=== PATIENT | female | born 1935 | race Caucasian/White ===

== ENCOUNTER → 2016-04-26 | Outpatient (CLI) | payer MEDICARE, MEDICAID | END | disposition home or self-care (01) | LOC: HKI 09:14 | PROVIDERS: ATTEND Orthopaedic Surgery | DX: Z01.818 Encounter for other preprocedural examination (principal); M16.0 Bilateral primary osteoarthritis of hip; M25.551 Pain in right hip; M25.552 Pain in left hip | CPT/HCPCS: G0463 ==

== ENCOUNTER 2016-05-09 05:17 | Inpatient (IN) | payer MEDICARE, OTHER ==
[2016-04-26 11:53] VITALS: Ht 160 cm; Wt 78.5 kg
--- NOTE | 2016-05-05 17:40 | PREOPHP ---
DATE OF ADMISSION: 05/09/2016 ASH Alarcon dictating for Diogo Park MD. CHIEF COMPLAINT: Left hip pain due to severe arthritis. HISTORY OF THE PRESENT ILLNESS: This is a 80-year-old woman evaluated from 04/26/2016 for left hip replacement surgery. PAST MEDICAL HISTORY: Diabetes, hypothyroidism, hypertension, hyperlipidemia, depression, history o f UTI. PAST SURGICAL HISTORY: Cholecystectomy, appendectomy, ____ removal for varicose veins. MEDICATIONS: 1. Metformin 500 mg b.i.d. 2. Levothyroxine 75 mcg. 3. Atorvastatin 40 mg daily. 4. Lisinopril/HCTZ 20/12.5 mg daily. 5. Vitamin D 2000 units. 6. Citalopram 20 mg. 7. Voltaren gel 1% p.r.n. b.i.d. 8. Acetaminophen 500 mg t.i.d. ALLERGIES: IODINE CAUSED HIVES. CIPROFLOXACIN CAUSED VOMITING. SOCIAL HISTORY: She is a . She lives alone and never smoked. She does not drink alcohol. FAMILY HISTORY: Diabetes, hypertension and breast cancer. REVIEW OF SYSTEMS: GENERAL/CONSTITUTIONAL: Negative. CARDIOVASCULAR: Negative for chest pain, palpitations and shortness of breath, syncope. RESPIRATORY: Negative for asthma, shortness of breath. GASTROINTESTINAL: Negative for gastritis, abdominal pain or gastrointestinal bleeding. GENITOURINARY: Negative for nephrolithiasis. Positive for history of UTI. NEUROLOGICAL/PSYCHIATRIC: Negative for stroke and neuropathy. Positive for depression controlled b y citalopram. HEMATOLOGIC: Negative. ENDOCRINOLOGY: Positive for diabetes and hypothyroidism. SKIN: Negative. PHYSICAL EXAMINATION: VITAL SIGNS: Height 5 feet 3 inches, weight 179.0 pounds. Temperature 98.1, blood pressure 172/88, heart rate 81 beats per minute regular. Respiratory rate 20. GENERAL APPEARANCE: Well developed and in no acute distress. Oriented x3. HEENT: Normocephalic and atraumatic. Anicteric sclerae. Narrow canals present. Oropharynx clear . Dentures. SKIN: No lesions. Normal turgor and texture. NECK: Symmetrical, supple, no masses. Trachea is midline. CARDIAC: Regular rhythm. No murmurs. LUNGS: Clear to auscultation bilaterally. Normal chest expansion. ABDOMEN: Soft and nontender, no organomegaly. Peristalsis present. MUSCULOSKELETAL: Spine nontender, no scoliosis. Good range of motion. EXTREMITIES: Pedal pulses present, no edema. NEUROLOGICAL: Cranial nerves grossly intact, nonfocal. No hilar rigidity. No sensory deficits. ADDITIONAL TESTS: Chest x-ray with marked cardiopulmonary disease. EKG normal sinus rhythm with si nus arrhythmia at 70 beats per minute, . LABORATORY DATA: Hemoglobin 12.3, hematocrit 37.7, leukocytes 6.4, platelets 181. BMP and PT and P TT within normal limits. UA: Specific gravity 0.007, negative for glucose, protein and ketones and blood leukocytes. Positive for leukocyte esterase. ASSESSMENT AND PLAN: A 80-year-old woman diabetic with multiple comorbidities with severe osteoarth ritis of the left hip. She is cleared for total left hip replacement surgery. Cardiology clearance attached. Dictated By: GENERIC AUTHOR for DIOGO MCGARRY/KATLIN Conf#: [id number] DID#: [id number]
[2016-05-09] VITALS (26 sets, daily range): BP systolic 101–138; BP diastolic 49–65; PULSE 68–80; RESP 10–20
[~2016-05-09] VITALS: Ht 160 cm; Wt 78.5 kg
[2016-05-09] MEDS: PAIN COCKTAIL-CEFUROXIME IRR SCH ×14 (05:00→08:18)
[~2016-05-09 05:17] MED LIST: BUPIVACAINE LIPOSOME/PF 266 MG/20 ML VIAL INFIL SCH; CEFAZOLIN 2GM/50 ML (PMX) 50 ML X1 BEFORE INCISION IVPB ONE; CELECOXIB 400 MG PO X1 DOSE PO ONE; EXPAREL NOTE (BUPIVICAINE LIPOSOMAL) XX SCH; LACTATED RINGER'S 1,000 ML IV ONE; PREGABALIN 300 MG PO X1 PO ONE; SOD CHLORIDE 0.9% IV ONE; TRANEXAMIC ACID 790 MG in SOD CHLORIDE 0.9% 100 ML IVPB SCH; TRANEXAMIC ACID IV ONE; oxyCODONE (CR) 10 MG TAB [oxyCONTIN] X1 DOSE PO ONE; traMADOL 50 MG TAB X 1 DOSE PO ONE
[2016-05-09] MEDS ORDERED: CEFAZOLIN 2GM/50 ML (PMX) 50 ML X1 BEFORE INCISION IVPB ONE (06:00)
[2016-05-09] MEDS ORDERED: CELECOXIB 400 MG PO X1 DOSE PO ONE (06:00)
[2016-05-09] MEDS ORDERED: TRANEXAMIC ACID IV ONE (06:00)
[2016-05-09] MEDS ORDERED: TRANEXAMIC ACID 790 MG in SOD CHLORIDE 0.9% 100 ML IVPB SCH (06:00)
[2016-05-09] MEDS ORDERED: SOD CHLORIDE 0.9% IV ONE (06:00)
[2016-05-09] MEDS ORDERED: traMADOL 50 MG TAB X 1 DOSE PO ONE (06:30)
[2016-05-09] MEDS ORDERED: BUPIVACAINE LIPOSOME/PF 266 MG/20 ML VIAL INFIL SCH (06:30)
[2016-05-09] MEDS ORDERED: PREGABALIN 300 MG PO X1 PO ONE (06:30)
[2016-05-09] MEDS ORDERED: oxyCODONE (CR) 10 MG TAB [oxyCONTIN] X1 DOSE PO ONE (06:30)
[2016-05-09] MEDS ORDERED: ROCURONIUM 50 MG INJ ONE (06:56)
[2016-05-09] MEDS ORDERED: ETOMIDATE 20 MG INJ ONE (06:56)
[2016-05-09] MEDS ORDERED: LIDOCAINE 100 MG SYRINGE ONE (06:56)
[2016-05-09] MEDS ORDERED: PROPOFOL 100 ML ONE (06:56)
[2016-05-09] MEDS ORDERED: NEOSTIGMINE 3 MG/3 ML SYRINGE ONE (06:56)
[2016-05-09] MEDS ORDERED: GLYCOPYRROLATE 1 MG INJ ONE (06:56)
[2016-05-09] MEDS ORDERED: MIDAZOLAM 1 MG/ML 2 ML INJ ONE (06:58)
[2016-05-09] MEDS ORDERED: FENTAnyl 50 MCG/ML VIAL ONE (06:58)
[2016-05-09] MEDS ORDERED: ONDANSETRON 4 MG INJ ONE (06:59)
[2016-05-09] MEDS ORDERED: DEXAMETHASONE 4 MG/ML 1 ML INJ ONE (07:02)
[2016-05-09] MEDS ORDERED: BACITRACIN 50000 UNITS INJ ONE (07:06)
[2016-05-09] MEDS ORDERED: SODIUM CL BACTERIOSTATIC 30 ML INJ ONE (07:08)
[2016-05-09] MEDS ORDERED: VANCOMYCIN 1 GM INJ ONE (07:09)
[2016-05-09] MEDS ORDERED: POLYMYXIN B 500000 UNIT INJ ONE (07:09)
--- NOTE | 2016-05-09 07:15 | HPN ---
Date/Time of Note Date/Time of Note DATE: 05/09/16 TIME: 07:15 Interval H&P Admission Note Pt. seen H&P reviewed: No system changes No changes from H&P Dictated by ASH Alarcon on 05/05/16 HEIKE HOLMAN MD May 09, 2016 07:15
[2016-05-09] MEDS ORDERED: LEVO75TA5 PO (07:39)
[2016-05-09] MEDS ORDERED: METF500T PO (07:39)
[2016-05-09] MEDS ORDERED: ATOR40TA68 PO (07:39)
[2016-05-09] MEDS ORDERED: LISI1TAB6 PO (07:41)
[2016-05-09] MEDS ORDERED: VIT D (07:41)
[2016-05-09] MEDS ORDERED: ACET-141 PO (07:42)
[2016-05-09] MEDS ORDERED: CITA20TA6 PO (07:42)
[2016-05-09] MEDS ORDERED: MEPERIDINE 25 MG INJ IV PRN (08:30)
[2016-05-09] MEDS ORDERED: TRIMETHOBENZAMIDE 100 MG/ML VIAL IM PRN (08:30)
[2016-05-09] MEDS ORDERED: ONDANSETRON 4 MG INJ IV PRN ×2 (08:30→15:00)
[2016-05-09] MEDS ORDERED: MIDAZOLAM 1 MG/ML 2 ML INJ IV PRN (08:30)
[2016-05-09] MEDS ORDERED: hydrALAzine 20 MG INJ IV PRN (08:30)
[2016-05-09] MEDS ORDERED: DIPHENHYDRAMINE 50 MG INJ IV PRN (08:30)
[2016-05-09] MEDS ORDERED: LABETALOL HCL 20MG INJ IV PRN (08:30)
[2016-05-09] MEDS ORDERED: EPHEDrine SULFATE 50 MG/5 ML SYG IV PRN (08:30)
[2016-05-09] MEDS ORDERED: HYDROmorphONE (0.2 MG/ML) 10ML SYG IV PRN ×3 (08:30)
[2016-05-09] MEDS ORDERED: FENTAnyl 50 MCG/ML VIAL IV PRN ×3 (08:30)
--- NOTE | 2016-05-09 09:18 | RADRPT ---
PROCEDURE: Intraoperative imaging of the left hip with fluoroscopy. CLINICAL INDICATION: Left hip pain. Intraoperative. TECHNIQUE: 16 images of the left hip were obtained in the operating room with an image intensifier . No radiologist was in attendance. 0.6 minutes of fluoroscopy time was used. COMPARISON: No prior study is available for comparison. FINDINGS: Images demonstrate placement of a total left hip arthroplasty. IMPRESSION: 1. Satisfactory intraoperative imaging of the left hip. RPTAT: QQ .Ferdinand Alcaraz MD, MD Date Time Electronically viewed and signed by .Ferdinand Alcaraz MD, MD on 05/09/2016 09:18 .R/
[2016-05-09] MEDS ORDERED: NACL 0.9% 3 ML SYG IV SCH (10:00)
[2016-05-09] MEDS ORDERED: NA PHOSPHATE/BIPHOS 133 ML ENEMA PR PRN (10:00)
[2016-05-09] MEDS ORDERED: ASPIRIN (EC) 325 MG TAB PO ONE (10:00)
--- NOTE | 2016-05-09 10:00 | PN ---
Date/Time of Note Date/Time of Note DATE: 05/09/16 TIME: 09:59 Assessment/Plan Lines/Catheters IV Catheter Type (from Nrsg): Peripheral IV Assessment/Plan Assessment/Plan Stable in PACU, s/p left anterior ROMÁN -cont abx -pain meds ASA/SCDs for DVT prophylaxis -OOB with PT -monitor drain -check AM labs -d/c ybarra in AM XR of the left hip is still pending at this time Subjective 24 Hr Interval Summary Stable in PACU. Moving all extremities. Denies any pain. Exam/Review of Systems Vital Signs Vitals Vital Signs Date Time Temp Pulse Resp B/P Pulse Ox O2 Delivery O2 Flow Rate FiO2 05/09/16 09:55 98.0 05/09/16 07:25 75 18 138/65 98 Intake and Output 05/08/16 05/08/16 05/09/16 15:00 23:00 07:00 Intake Total 0 ml Balance 0 ml Exam Free Text/Dictation Dressing dry Incision clean, dry, and intact without redness or drainage 5/5 Quadriceps, Tibialis Anterior, EHL, Gastroc, Soleus, Peroneals Normal sensation Palpable DT/PT, CR <2 sec No distal edema NENA MEDRANO PA-C May 09, 2016 10:00
--- NOTE | 2016-05-09 10:02 | OPPN ---
Date/Time of Note Date/Time of Note DATE: 05/09/16 TIME: 10:01 Operative/Procedure Note Dictation # [id number] Pre-Operative Diagnosis Left Hip OA Post-Operative Diagnosis Same Procedure Left Anterior ROMÁN Surgeon: HEIKE HOLMAN MD Books Salesperson: NENA MEDRANO PA-C Anesthesiologist: Deejay Uriarte M.D. Findings Severe OA Blood Usage/Administration None Implants/Grafts Depuy ROMÁN Estimated blood loss: 250 - 300 ml's Drains Hemovac x 1 Specimens Femoral Head Complications: None Anesthesia type: spinal HEIKE HOLMAN MD May 09, 2016 10:02
--- NOTE | 2016-05-09 10:31 | RADRPT ---
PROCEDURE: XR Pelvis. CLINICAL INDICATION: Hip pain TECHNIQUE: Single AP view performed. COMPARISON: 01/10/2016 FINDINGS: There is a left total hip replacement. There is no evidence of loosening of the prosthesis. There is moderate right hip osteoarthrosis. This is associated with joint space narrowing, subchondr al sclerosis and osteophytosis. There is diffuse osteopenia. No fractures or osseous lesions are i dentified. There are postoperative soft tissue changes on the left. A drain is in place. IMPRESSION: Postoperative left total hip replacement Postoperative soft tissue changes with a drain in place Moderate right hip osteoarthrosis. RPTAT: HGDB .Nilesh Dominguez MD, MD Date Time Electronically viewed and signed by .Nilesh Dominguez MD, on 05/09/2016 10:31 .B/
--- NOTE | 2016-05-09 10:33 | RADRPT ---
PROCEDURE: XR left hip. CLINICAL INDICATION: Hip pain TECHNIQUE: AP view available for review. COMPARISON: 01/10/2016 FINDINGS: There is a postoperative left total hip replacement. There is no evidence of loosening of the prosth esis. There is normal mineralization, architecture and alignment. No fractures are identified. No osseous lesions are present. There are postoperative soft tissue changes. The drain is in place. IMPRESSION: Postoperative left total hip replacement Postoperative soft tissue changes RPTAT: HGDB .Nilesh Dominguez MD, Date Time Electronically viewed and signed by .Nilesh Dominguez MD, on 05/09/2016 10:32 .B/
[2016-05-09] MEDS ORDERED: CEFAZOLIN 1 GM/50 ML (PMX) 50 ML IVPB ONE (10:46)
[2016-05-09 10:47] LABS: HEMATOCRIT 32.9 % (37.0-47.0)
[2016-05-09] MEDS: CEFAZOLIN 2 GM/50 ML (PMX) 50 ML IVPB SCH ×2 (10:57→18:00)
--- NOTE | 2016-05-09 11:41 | OPR ---
DATE OF OPERATION: 05/09/2016 DATE: 05/09/2016 PREOPERATIVE DIAGNOSIS: Left hip osteoarthritis. POSTOPERATIVE DIAGNOSIS: Left hip osteoarthritis. OPERATION PERFORMED: Left anterior total hip arthroplasty. SURGEON: Heike Park MD BUSH HOG OPERATOR: ASH Sanders COMPONENTS USED: De Puy 50 mm Gription [place] cup, 50/32 neutral Ultrex polyethylene linear, size 3 standard Actis stem, 32 + 5 ceramic head. ANESTHESIA: Spinal plus general endotracheal intubation, plus periarticular injection. ANESTHESIOLOGIST: Dr. Tom ESTIMATED BLOOD LOSS: 300 cc INTRAVENOUS FLUIDS: Crystalloid 2 L. SPECIMENS: Femoral head. DRAINS: HemoVac x 1. COMPLICATIONS: None. DISPOSITION: The patient tolerated the procedure well and was taken to the recovery room in stable condition. INDICATIONS: The patient is a 80-year-old woman who has had progressive worsening pain in the right hip with radiographic evidence of severe osteoarthritis. She has failed nonsurgical means of treatment to control her pain, including activity modifications, pain medications and ambulatory assist devices. Despite these measures, she has had worsening pain and I felt she would benefit from a total hip arthroplasty and anterior approach. I felt the patient would benefit from a total hip arthroplasty through an anterior approach. The risks, benefits, and alternatives of the procedure were explained in detail to the patient. I explained the risks of the surgery to include, but not be limited to: bleeding and possible need for blood transfusion; infection; pain; stiffness; neurovascular injury with possible numbness, weakness, and/or paralysis anywhere from the hip down to the toes; fracture; instability; dislocation; leg length inequality; wear and/or loosening of the prosthesis and possible need for future revision; blood clots; pulmonary embolism; and anesthetic complications such as heart attack, stroke, GI bleed, pneumonia, and/ or . Ample time was allowed for the patient to ask questions, all of which were addressed and answered. The patient understood the risks involved and wished to proceed. Informed consent was signed prior to the procedure. PROCEDURE: The patient's left hip was initialed with a marking pen in the preoperative area to identify the correct operative site. The patient was brought to the operating room and [facility] where a spinal anesthetic was administered. The patient was then anesthetized and intubated. A Herr catheter was placed. Both feet were placed into well-padded boots which were then placed into the leg holders of the traction booms. A timeout was performed to confirm that the ;eft side was the correct operative site. The patient was given 2 g of intravenous Ancef within one hour prior to the procedure. The operative hip was prepped and draped in the usual sterile fashion. A 10 cm oblique incision was made over the anterior aspect of the hip and carried down through subcutaneous tissue and fat with sharp dissection. The tensor fascia jose was incised along the length of the wound. The tensor fascia muscle was retracted laterally and the sartorius medially. The anterior circumflex vessels were identified and tied off with 2-0 silk suture and coagulated with the [employer] physician relations representative. The rectus femoris was elevated off the anterior capsule and an anterior capsulectomy performed. A femoral neck osteotomy was made and the head removed from the acetabulum. The acetabulum was denuded of cartilage circumferentially, as was the femoral head. Retractors were placed around the acetabulum. The remnants of the labrum and ligamentum teres were excised. I reamed the acetabulum to the medial wall and then went into an anatomic position and increased the reamer size in 2 mm increments until I got a good bite and was down to bleeding subchondral bone. The Decatur cup was opened and impacted into the acetabulum and sat flush circumferentially, getting a good bite. C-arm imaging showed it had about 40 to 45 degrees of abduction and 20 degrees of anteversion. The real liner was opened and impacted into the acetabulum and sat flush circumferentially. Attention was turned towards the femur. The operative leg was carefully lowered to the floor with the leg adducted. The foot was then externally rotated to approximately 110 degrees. A posteromedial release was performed to optimize exposure. The femoral hook was placed underneath the proximal femur and the hydraulic lift was then used to elevate the femur up out of the wound. The sebastian cutter osteotome was used to remove the remaining overhanging greater trochanter. The femur was then broached, going up in one size increments until it sat flush with the neck cut and a stable fit was achieved. The trial neck and head were assembled and reduced into the acetabulum. Fluoroscopic imaging showed the components to be in good position and the leg lengths and offsets to be equal. At this point, the trial was dislocated and the trial broach removed. The canal was irrigated and dried. The real stem was opened and impacted into the femur. The trunnion was irrigated and dried, and the real femoral head was impacted onto the trunnion, and reduced into the acetabulum. The soft tissues were infiltrated with a mixture of 150 mg of 0.5% Bupivacaine, 8 mg of Duramorph, 300 mcg of epinephrine, 30 mg of Toradol, 100 mcg of clonidine, 750 mg of cefuroxime and 86 mL of normal saline, followed by an injection of 266 mg of liposomal Bupivacaine. At this point the hip was irrigated with a mixture of betadine/saline and then antibiotic saline with pulsatile lavage. A Hemovac drain was placed in the deep portion of the wound and brought out the anterolateral thigh. There was good hemostasis. The tensor fascia jose was repaired with a running #1 Vicryl. The deep fat layer was irrigated and closed with 2-0 Stratafix and the subcutaneous layer closed with 3 -0 Stratafix and the skin was sealed with Prineo Dermabond. The drain was secured with 3-0 nylon. Dictated By: HEIKE SORIA/KATLIN Conf#: [id number] DID#: [id number] MTDYas
[2016-05-09 12:37] LABS: POTASSIUM 4.5 mmol/L (3.5-5.1)
[2016-05-09 12:39] LABS: CREATININE 0.56 mg/dl (0.44-1.00)
[2016-05-09] MEDS: traMADol 50 MG TAB PO SCH ×2 (12:46→18:00)
[2016-05-09] MEDS: ACETAMINOPHEN 1000MG/100ML IV 100 ML IVPB SCH ×2 (12:46→17:55)
[2016-05-09] MEDS: LISINOPRIL 20 MG TAB PO SCH (14:00)
[2016-05-09] MEDS ORDERED: CEFAZOLIN 2 GM/50 ML (PMX) 50 ML IVPB SCH (14:00)
[2016-05-09] MEDS ORDERED: GLUCOSE GEL 15 GRAM TUBE BUCCAL PRN (14:30)
[2016-05-09] MEDS ORDERED: GLUCAGON 1 MG INJ IM PRN (14:30)
[2016-05-09] MEDS ORDERED: GLUCOSE GEL 15 GRAM TUBE PO PRN ×2 (14:30)
[2016-05-09] MEDS ORDERED: DEXTROSE 50% 50 ML SYRINGE IV PRN ×2 (14:30)
--- NOTE | 2016-05-09 14:41 | CONS ---
DATE OF ADMISSION: 05/09/2016 DATE OF CONSULTATION: 05/09/2016 TYPE OF CONSULTATION: Nephrology. Dear Dr. Hawkins: Thank you very much for allowing me to evaluate this 80-year-old female who just un derwent left hip replacement. HISTORICAL EVENTS: As you well know, this patient has had progressive disabling pain involving her left hip, and elected to proceed with surgery. Postoperatively, on the orthopedic floor, she is com fortable without cough, wheezing, shortness of breath, nausea, vomiting, abdominal or chest pain and has just minimal left hip discomfort. PAST MEDICAL HISTORY: 1. Includes: Adult onset diabetes. 2. Hypothyroidism. 3. Hypertension. 4. Hyperlipidemia. 5. Depression. 6. History of urinary tract infection. 7. Cholecystectomy. 8. Appendectomy. 9. Surgery for varicose veins. MEDICATIONS 1. Metformin 500 b.i.d. 2. Levothyroxine 75 mcg per day. 3. Atorvastatin 40 mg per day. 4. Lisinopril/hydrochlorothiazide 20/12.5 per day. 5. Vitamin D 2000 per day. 6. Citalopram 20 mg per day. 7. Voltaren gel p.r.n. 8. Acetaminophen 500 t.i.d. ALLERGIES INCLUDE: 1. CIPRO. 2. IODINE. SOCIAL HISTORY: She is a , does not smoke, does not drink. FAMILY HISTORY: Positive for breast cancer, hypertension and diabetes. PHYSICAL EXAMINATION: GENERAL: Overweight female in no acute distress. VITAL SIGNS: BP 123/78, respirations were 18. She was afebrile. EYES: Extraocular muscles were full. NOSE, MOUTH, AND THROAT: Normal. NECK: Supple. There was no jugular venous distention, thyroid enlargement or adenopathy. LUNGS: Clear. HEART: Rhythm was regular, no murmur. No third or fourth sound. ABDOMEN: Nontender. Liver and spleen were not palpable. No masses or tenderness were noted. EXTREMITIES: No edema. IMPRESSION: 1. Stable postop left hip replacement. 2. History of diabetes. We will continue metformin and treat with short-acting insulin a.c. t.i.d . 3. Hyperlipidemia with a history of coronary artery disease. Will continue atorvastatin. 4. Hypertension. We will continue RAY inhibitor without hydrochlorothiazide. 5. We will evaluate her daily with you for signs and symptoms of thromboembolic disease despite scotty ropriate DVT prophylaxis. Dictated By: VIRY VALVERDE/KATLIN Conf#: [id number] DID#: [id number]
[2016-05-09] MEDS ORDERED: oxyCODONE 5 MG TAB PO PRN (15:00)
[2016-05-09] MEDS ORDERED: HYDROmorphONE 1 MG/ML SYG IV PRN (15:00)
[2016-05-09] MEDS ORDERED: BISACODYL 10 MG SUPP PR PRN (15:00)
[2016-05-09] MEDS: KETOROLAC 15 MG INJ IV SCH ×2 (15:00→22:53)
[2016-05-09] MEDS ORDERED: DIPHENHYDRAMINE 25 MG CAP PO PRN (15:00)
[2016-05-09] MEDS ORDERED: MAGNESIUM HYDROXIDE 30ML CUP PO PRN (15:00)
[2016-05-09] MEDS: LACTATED RINGER'S 1,000 ML IV SCH (17:55)
[2016-05-09] MEDS: PANTOPRAZOLE (EC) 40 MG TAB PO SCH (17:59)
[2016-05-09] MEDS: INSULIN ASPART [NOVOLOG] 3 ML PEN SC SCH (18:34)
[2016-05-09] MEDS: ATORVASTATIN 40 MG TAB PO SCH (20:45)
[2016-05-09] MEDS: PREGABALIN 25 MG CAP PO SCH (20:45)
[2016-05-09] MEDS: DOCUSATE SODIUM 100 MG CAP PO SCH (20:45)
[2016-05-10] MEDS: ACETAMINOPHEN 1000MG/100ML IV 100 ML IVPB SCH ×2 (00:01→05:44)
[2016-05-10 00:08] VITALS: BP 96/51; RESP 20
[2016-05-10] MEDS: CEFAZOLIN 2 GM/50 ML (PMX) 50 ML IVPB SCH (02:48)
[2016-05-10 05:40] LABS: HEMATOCRIT 26.5 % (37.0-47.0); HEMOGLOBIN 8.9 g/dl (12.0-16.0)
[2016-05-10] MEDS: LACTATED RINGER'S 1,000 ML IV SCH ×4 (05:44→23:00)
[2016-05-10] MEDS: PANTOPRAZOLE (EC) 40 MG TAB PO SCH ×2 (05:44→18:28)
[2016-05-10] MEDS: traMADol 50 MG TAB PO SCH ×5 (05:45→23:57)
[2016-05-10 05:47] LABS: POTASSIUM 4.6 mmol/L (3.5-5.1)
[2016-05-10 05:50] LABS: CALCIUM 8.7 mg/dl (8.4-10.2); CREATININE 0.65 mg/dl (0.44-1.00)
[2016-05-10 06:09] VITALS: BP 96/55; PULSE 71; RESP 18
[2016-05-10 06:17] LABS: ADD UMIC NO; URINE BILIRUBIN (Dip) NEGATIVE (NEGATIVE); URINE BLOOD (Dip) NEGATIVE (NEGATIVE); URINE COLOR LT. YELLOW (YELLOW); URINE GLUCOSE (Dip) NEGATIVE (NEGATIVE); URINE KETONES (Dip) NEGATIVE (NEGATIVE); URINE LEUKOCYTE ESTERASE (Dip) NEGATIVE (NEGATIVE); URINE NITRITE (Dip) NEGATIVE (NEGATIVE); URINE TOTAL PROTEIN (Dip) NEGATIVE (NEGATIVE); URINE UROBILINOGEN (Dip) 0.2 E.U./dL (0.1-1.0)
[2016-05-10] MEDS: LEVOTHYROXINE 75 MCG TAB PO SCH (06:24)
[2016-05-10] MEDS: KETOROLAC 15 MG INJ IV SCH ×2 (06:34→16:04)
--- NOTE | 2016-05-10 08:48 | CONS ---
Date/Time of Note Date/Time of Note DATE: 05/10/16 TIME: 08:47 Assessment/Plan Assessment/Plan Additional Assessment/Plan 1. Doing well post op left hip replacement. 2. Hx elev BP, now controlled 3. Anemia, rev with ortho, may need transfusion Consultation Date/Type/Reason Admit Date/Time May 09, 2016 at 05:17 Initial Consult Date Detailed Summary Respiratory: No cough, No shortness of breath Cardiovascular: No chest pain Gastrointestinal: no complaints Genitourinary: no complaints Musculoskeletal: bone/joint pain (mild left hip pain) Exam/Review of Systems Vital Signs Vitals Vital Signs Date Time Temp Pulse Resp B/P Pulse Ox O2 Delivery O2 Flow Rate FiO2 05/10/16 06:09 98.3 71 18 96/55 94 Room Air 05/09/16 20:00 2.0 Intake and Output 05/09/16 05/09/16 05/10/16 15:00 23:00 07:00 Intake Total 2000 ml 1450 ml 1250 ml Output Total 1200 ml 740 ml Balance 2000 ml 250 ml 510 ml Exam Neck: No jvd Respiratory: clear to auscultation Cardiovascular: regular rate and rhythm Gastrointestinal: soft Extremities: No edema (and no calf tend) Results Result Diagram: 05/10/16 0428 05/10/16 0420 Results 24 hrs Laboratory Tests Test 05/09/16 10:09 05/09/16 10:33 05/09/16 17:45 05/10/16 04:20 Bedside Glucose 178 216 Anion Gap 17 H 13 Blood Urea Nitrogen 16 19 Calcium Level 9.0 8.7 Carbon Dioxide Level 23 27 Chloride Level 108 102 Creatinine 0.56 0.65 Glucose Level 201 139 # Hematocrit 32.9 L Hemoglobin 11.0 L Potassium Level 4.5 4.6 Sodium Level 143 137 Test 05/10/16 04:28 05/10/16 04:30 05/10/16 07:36 Hematocrit 26.5 L Hemoglobin 8.9 L Urine Bilirubin NEGATIVE Urine Clarity CLEAR Urine Color LT. YELLOW Urine Glucose NEGATIVE Urine Hemoglobin NEGATIVE Urine Ketones NEGATIVE Urine Leukocyte Esterase NEGATIVE Urine Nitrite NEGATIVE Urine Specific [place] 1.010 Urine Total Protein NEGATIVE Urine Urobilinogen 0.2 E.U./dL Urine pH 6.0 Bedside Glucose 143 Medications Medications Current Medications Miscellaneous Information 1 ea NOTE XX ; Start 05/09/16 at 05:00; Stop 05/13/16 at 04:59 Atorvastatin Calcium (Lipitor) 40 mg QHS PO Last administered on 05/09/16 20: 45; Admin Dose 40 MG; Start 05/09/16 at 21:00 Citalopram Hydrobromide 20 mg 20 mg DAILY PO ; Start 05/10/16 at 09:00 Lactated Ringer's (Lr) 1,000 ml @ 125 mls/hr Q8H IV Last administered on 05:44; Admin Dose 125 MLS/HR; Start 05/09/16 at 15:00 Ketorolac Tromethamine (Toradol) 15 mg Q8H IV Last administered on 05/10/16 06 :34; Admin Dose 15 MG; Start 05/09/16 at 15:00; Stop 05/10/16 at 16:00 Celecoxib 200 mg 200 mg DAILY PO ; Start 05/10/16 at 09:00 Acetaminophen (Ofirmev 1000mg/ 100ml Iv) 100 ml @ 400 mls/hr Q6 IVPB Last administered on 05/10/16 05:44; Admin Dose 400 MLS/HR; Start 05/09/16 at 12:00 ; Stop 05/10/16 at 11:59 Tramadol HCl (Ultram) 50 mg Q6 PO Last administered on 05/10/16 05:45; Admin Dose 50 MG; Start 05/09/16 at 12:00; Stop 05/12/16 at 11:59 Oxycodone HCl (Roxicodone) 5 mg Q4H PRN PO PAIN LEVEL 1-3; Start 05/09/16 at 15 :00 Oxycodone HCl (Roxicodone) 10 mg Q4H PRN PO PAIN LEVEL 4-7; Start 05/09/16 at 15:00 Hydromorphone HCl (Dilaudid) 1 mg Q3H PRN IV PAIN LEVEL 8-10; Start 05/09/16 at 15:00 Ondansetron HCl (Zofran Inj) 4 mg Q6H PRN IV NAUSEA AND/OR VOMITING; Start at 15:00 Bisacodyl (Dulcolax Supp) 10 mg Q12H PRN NV CONSTIPATION; Start 05/09/16 at 15: 00 Magnesium Hydroxide (Milk Of Mag) 30 ml BID PRN PO CONSTIPATION; Start at 15:00 Sodium Biphosphate/ Sodium Phosphate (Fleet Enema) 133 ml DAILY PRN NV CONSTIPATION; Start 05/09/16 at 10:00 Docusate Sodium (Colace) 100 mg BID PO Last administered on 05/09/16 20:45; Admin Dose 100 MG; Start 05/09/16 at 21:00 Diphenhydramine HCl (Benadryl) 25 mg Q6H PRN PO PRURITUS; Start 05/09/16 at 15: 00 Aspirin (Ecotrin) 325 mg BID PO ; Start 05/10/16 at 09:00 Pregabalin (Lyrica) 50 mg BID PO Last administered on 05/09/16 20:45; Admin Dose 50 MG; Start 05/09/16 at 21:00 Pantoprazole (Protonix Tab) 40 mg BID@06,18 PO Last administered on 05/10/16 05:44; Admin Dose 40 MG; Start 05/09/16 at 18:00 Lisinopril (Zestril) 20 mg DAILY PO ; Start 05/09/16 at 14:00 Levothyroxine Sodium (Synthroid) 75 mcg DAILY@06 PO Last administered on 06:24; Admin Dose 75 MCG; Start 05/10/16 at 06:00 Miscellaneous Information 1 ea NOTE XX ; Start 05/09/16 at 14:30 Glucose (Glutose) 15 gm Q15M PRN PO DECREASED GLUCOSE; Start 05/09/16 at 14:30 Glucose (Glutose) 22.5 gm Q15M PRN PO DECREASED GLUCOSE; Start 05/09/16 at 14: 30 Dextrose (D50w Syringe) 25 ml Q15M PRN IV DECREASED GLUCOSE; Start 05/09/16 at 14:30 Dextrose (D50w Syringe) 50 ml Q15M PRN IV DECREASED GLUCOSE; Start 05/09/16 at 14:30 Glucagon (Glucagen) 1 mg Q15M PRN IM DECREASED GLUCOSE; Start 05/09/16 at 14:30 Glucose (Glutose) 15 gm Q15M PRN BUCCAL DECREASED GLUCOSE; Start 05/09/16 at 14 :30 Influenza Virus Vaccine (Fluzone) 0.5 ml ONCE ONCE IM* ; Start 05/11/16 at 09:00 ; Stop 05/11/16 at 09:01 VIRY CASTANEDA MD May 10, 2016 08:48
[2016-05-10] MEDS: INSULIN ASPART [NOVOLOG] 3 ML PEN SC SCH ×3 (08:53→18:30)
--- NOTE | 2016-05-10 08:53 | PN ---
Date/Time of Note Date/Time of Note DATE: 05/10/16 TIME: 08:51 Assessment/Plan Lines/Catheters IV Catheter Type (from Nrsg): Peripheral IV Herr in Place (from Nrsg): Yes Assessment/Plan Assessment/Plan Stable POD #1 s/p left anterior ROMÁN -d/c abx -pain meds -ASA/SCDs -monitor H&H for now, check AM labs -OOB with PT -encourage incentive spirometry -drain removed today, dressing changed -d/c planning. Would like to go to [facility] ([facility]) Subjective 24 Hr Interval Summary Doing well. No acute overnight events. H&H dropped mildly. Will monitor for now. Denies pain. VSS, afebrile Exam/Review of Systems Vital Signs Vitals Vital Signs Date Time Temp Pulse Resp B/P Pulse Ox O2 Delivery O2 Flow Rate FiO2 05/10/16 06:09 98.3 71 18 96/55 94 Room Air 05/09/16 20:00 2.0 Intake and Output 05/09/16 05/09/16 05/10/16 15:00 23:00 07:00 Intake Total 2000 ml 1450 ml 1250 ml Output Total 1200 ml 740 ml Balance 2000 ml 250 ml 510 ml Exam Free Text/Dictation Hemovac: 140cc Dressing dry Incision clean, dry, and intact without redness or drainage 5/5 Quadriceps, Tibialis Anterior, EHL, Gastroc, Soleus, Peroneals Normal sensation Palpable DT/PT, CR <2 sec No distal edema Results Result Diagram: 05/10/16 0428 05/10/16 0420 NENA MEDRANO PA-C May 10, 2016 08:53
[2016-05-10] MEDS: metFORMIN 500 MG TAB PO SCH (08:54)
[2016-05-10] MEDS: CELECOXIB 200 MG CAP PO SCH (08:54)
[2016-05-10] MEDS: DOCUSATE SODIUM 100 MG CAP PO SCH ×2 (08:54→20:30)
[2016-05-10] MEDS: ASPIRIN (EC) 325 MG TAB PO SCH ×2 (08:54→20:30)
[2016-05-10] MEDS: CITALOPRAM 20 MG TAB PO SCH (08:55)
[2016-05-10] MEDS: LISINOPRIL 20 MG TAB PO SCH (08:55)
[2016-05-10] MEDS: PREGABALIN 25 MG CAP PO SCH ×2 (08:57→20:30)
[2016-05-10 09:04] VITALS: BP 119/56; RESP 18
[2016-05-10] MEDS: oxyCODONE 5 MG TAB PO PRN (16:05)
[2016-05-10] MEDS: ATORVASTATIN 40 MG TAB PO SCH (20:30)
[2016-05-11] MEDS: oxyCODONE 5 MG TAB PO PRN (02:02)
[2016-05-11] MEDS: PANTOPRAZOLE (EC) 40 MG TAB PO SCH ×2 (05:25→17:22)
[2016-05-11] MEDS: LEVOTHYROXINE 75 MCG TAB PO SCH (05:25)
[2016-05-11 05:26] LABS: HEMATOCRIT 25.6 % (37.0-47.0); HEMOGLOBIN 8.7 g/dl (12.0-16.0)
[2016-05-11 05:34] LABS: POTASSIUM 3.9 mmol/L (3.5-5.1)
[2016-05-11 05:36] LABS: CREATININE 0.53 mg/dl (0.44-1.00)
[2016-05-11 05:37] LABS: CALCIUM 8.3 mg/dl (8.4-10.2)
[2016-05-11] MEDS: traMADol 50 MG TAB PO SCH ×3 (05:47→17:22)
[2016-05-11] MEDS: LACTATED RINGER'S 1,000 ML IV SCH ×3 (07:00→22:56)
[2016-05-11] MEDS ORDERED: INFLUENZA VIRUS VACCINE 0.5 ML (DISPENSING) IM* ONE (09:00)
[2016-05-11] MEDS: LISINOPRIL 20 MG TAB PO SCH (09:00)
[2016-05-11] MEDS: DOCUSATE SODIUM 100 MG CAP PO SCH ×2 (09:02→21:37)
[2016-05-11] MEDS: metFORMIN 500 MG TAB PO SCH (09:02)
[2016-05-11] MEDS: ASPIRIN (EC) 325 MG TAB PO SCH ×2 (09:02→21:37)
[2016-05-11] MEDS: PREGABALIN 25 MG CAP PO SCH ×2 (09:03→21:37)
[2016-05-11] MEDS: CELECOXIB 200 MG CAP PO SCH (09:03)
[2016-05-11] MEDS: CITALOPRAM 20 MG TAB PO SCH (09:03)
[2016-05-11 09:04] VITALS: BP 118/62; RESP 20
[2016-05-11] MEDS: INSULIN ASPART [NOVOLOG] 3 ML PEN SC SCH ×3 (09:05→17:22)
--- NOTE | 2016-05-11 11:11 | PN ---
Date/Time of Note Date/Time of Note DATE: 05/11/16 TIME: 11:09 Assessment/Plan Lines/Catheters IV Catheter Type (from Nrsg): Saline Lock Herr in Place (from Nrsg): No Assessment/Plan Assessment/Plan Stable POD #2 s/p left anterior ROMÁN -pain meds -ASA/SCDs -OOB with PT -dressing changed -H&H low but will monitor for now -encourage incentive spirometry -d/c planning. Will likely go to [facility] tomorrow Subjective 24 Hr Interval Summary Doing well. No acute overnight events. H&H low, but will monitor for now. VSS, afebrile. Will plan to transfer to [facility] tomorrow. Exam/Review of Systems Vital Signs Vitals Vital Signs Date Time Temp Pulse Resp B/P Pulse Ox O2 Delivery O2 Flow Rate FiO2 05/11/16 09:04 99.4 86 20 118/62 95 05/10/16 07:30 Nasal Cannula 2.0 Intake and Output 05/10/16 05/10/16 05/11/16 15:00 23:00 07:00 Intake Total 1100 ml 800 ml Balance 1100 ml 800 ml Exam Free Text/Dictation Dressing dry Incision clean, dry, and intact without redness or drainage 5/5 Quadriceps, Tibialis Anterior, EHL, Gastroc, Soleus, Peroneals Normal sensation Palpable DT/PT, CR <2 sec No distal edema Results Result Diagram: 05/11/16 0423 05/11/16 0423 NENA MEDRANO PA-C May 11, 2016 11:11
--- NOTE | 2016-05-11 12:28 | CONS ---
Date/Time of Note Date/Time of Note DATE: 05/11/16 TIME: 12:26 Assessment/Plan Assessment/Plan Additional Assessment/Plan 1. Stable post op left hip 2. BP well controlled 3. Anemia, asx, no need for transfusion, will monitor Consultation Date/Type/Reason Admit Date/Time May 09, 2016 at 05:17 Detailed Summary Cardiovascular: No chest pain, No lightheadedness Gastrointestinal: no complaints Genitourinary: no complaints Musculoskeletal: bone/joint pain (mild left hip pain) Exam/Review of Systems Vital Signs Vitals Vital Signs Date Time Temp Pulse Resp B/P Pulse Ox O2 Delivery O2 Flow Rate FiO2 05/11/16 09:04 99.4 86 20 118/62 95 05/10/16 07:30 Nasal Cannula 2.0 Intake and Output 05/10/16 05/10/16 05/11/16 15:00 23:00 07:00 Intake Total 1100 ml 800 ml Balance 1100 ml 800 ml Exam Neck: No jvd Respiratory: clear to auscultation Cardiovascular: regular rate and rhythm Gastrointestinal: No tender Extremities: No edema (and no calf tend) Results Result Diagram: 05/11/16 0423 05/11/16 0423 Results 24 hrs Laboratory Tests Test 05/10/16 17:10 05/11/16 04:23 05/11/16 08:08 05/11/16 11:26 Bedside Glucose 142 153 182 Anion Gap 12 Blood Urea Nitrogen 17 Calcium Level 8.3 L Carbon Dioxide Level 28 Chloride Level 102 Creatinine 0.53 Glucose Level 135 Hematocrit 25.6 L Hemoglobin 8.7 L Potassium Level 3.9 Sodium Level 138 Medications Medications Current Medications Miscellaneous Information 1 ea NOTE XX ; Start 05/09/16 at 05:00; Stop 05/13/16 at 04:59 Atorvastatin Calcium (Lipitor) 40 mg QHS PO Last administered on 05/10/16 20: 30; Admin Dose 40 MG; Start 05/09/16 at 21:00 Citalopram Hydrobromide 20 mg 20 mg DAILY PO Last administered on 05/11/16 09: 03; Admin Dose 20 MG; Start 05/10/16 at 09:00 Lactated Ringer's (Lr) 1,000 ml @ 125 mls/hr Q8H IV Last administered on 05:44; Admin Dose 125 MLS/HR; Start 05/09/16 at 15:00 Celecoxib (Celebrex) 200 mg DAILY PO Last administered on 05/11/16 09:03; Admin Dose 200 MG; Start 05/10/16 at 09:00 Tramadol HCl (Ultram) 50 mg Q6 PO Last administered on 05/10/16 18:28; Admin Dose 50 MG; Start 05/09/16 at 12:00; Stop 05/12/16 at 11:59 Oxycodone HCl (Roxicodone) 5 mg Q4H PRN PO PAIN LEVEL 1-3 Last administered on 05/11/16 02:02; Admin Dose 5 MG; Start 05/09/16 at 15:00 Oxycodone HCl (Roxicodone) 10 mg Q4H PRN PO PAIN LEVEL 4-7; Start 05/09/16 at 15:00 Hydromorphone HCl (Dilaudid) 1 mg Q3H PRN IV PAIN LEVEL 8-10; Start 05/09/16 at 15:00 Ondansetron HCl (Zofran Inj) 4 mg Q6H PRN IV NAUSEA AND/OR VOMITING; Start at 15:00 Bisacodyl (Dulcolax Supp) 10 mg Q12H PRN [place] CONSTIPATION; Start 05/09/16 at 15: 00 Magnesium Hydroxide (Milk Of Mag) 30 ml BID PRN PO CONSTIPATION; Start at 15:00 Sodium Biphosphate/ Sodium Phosphate (Fleet Enema) 133 ml DAILY PRN CO CONSTIPATION; Start 05/09/16 at 10:00 Docusate Sodium (Colace) 100 mg BID PO Last administered on 05/11/16 09:02; Admin Dose 100 MG; Start 05/09/16 at 21:00 Diphenhydramine HCl (Benadryl) 25 mg Q6H PRN PO PRURITUS; Start 05/09/16 at 15: 00 Aspirin (Ecotrin) 325 mg BID PO Last administered on 05/11/16 09:02; Admin Dose 325 MG; Start 05/10/16 at 09:00 Pregabalin (Lyrica) 50 mg BID PO Last administered on 05/11/16 09:03; Admin Dose 50 MG; Start 05/09/16 at 21:00 Pantoprazole (Protonix Tab) 40 mg BID@06,18 PO Last administered on 05/11/16 05:25; Admin Dose 40 MG; Start 05/09/16 at 18:00 Lisinopril (Zestril) 20 mg DAILY PO ; Start 05/09/16 at 14:00 Levothyroxine Sodium (Synthroid) 75 mcg DAILY@06 PO Last administered on 05:25; Admin Dose 75 MCG; Start 05/10/16 at 06:00 Miscellaneous Information 1 ea NOTE XX ; Start 05/09/16 at 14:30 Glucose (Glutose) 15 gm Q15M PRN PO DECREASED GLUCOSE; Start 05/09/16 at 14:30 Glucose (Glutose) 22.5 gm Q15M PRN PO DECREASED GLUCOSE; Start 05/09/16 at 14: 30 Dextrose (D50w Syringe) 25 ml Q15M PRN IV DECREASED GLUCOSE; Start 05/09/16 at 14:30 Dextrose (D50w Syringe) 50 ml Q15M PRN IV DECREASED GLUCOSE; Start 05/09/16 at 14:30 Glucagon (Glucagen) 1 mg Q15M PRN IM DECREASED GLUCOSE; Start 05/09/16 at 14:30 Glucose (Glutose) 15 gm Q15M PRN BUCCAL DECREASED GLUCOSE; Start 05/09/16 at 14 :30 VIRY CASTANEDA MD May 11, 2016 12:28
[2016-05-11 19:00] VITALS: BP_SYST 121; BP_SYST 124; BP_DIAS 64; BP_DIAS 73; RESP 18
[2016-05-11] MEDS: ATORVASTATIN 40 MG TAB PO SCH (21:37)
[2016-05-12] MEDS: traMADol 50 MG TAB PO SCH ×2 (00:15→05:31)
[2016-05-12] MEDS: PANTOPRAZOLE (EC) 40 MG TAB PO SCH (05:31)
[2016-05-12] MEDS: LEVOTHYROXINE 75 MCG TAB PO SCH (05:31)
[2016-05-12 06:33] LABS: IRON 12 ug/dl (35-150)
[2016-05-12 06:40] LABS: HEMATOCRIT 27.2 % (37.0-47.0); HEMOGLOBIN 9.2 g/dl (12.0-16.0)
[2016-05-12 06:42] LABS: TOTAL IRON BINDING CAPACITY 295 ug/dl (241-421)
[2016-05-12 06:57] LABS: POTASSIUM 4.3 mmol/L (3.5-5.1)
[2016-05-12] MEDS: LACTATED RINGER'S 1,000 ML IV SCH ×2 (06:58→15:00)
[2016-05-12 07:00] LABS: CREATININE 0.53 mg/dl (0.44-1.00)
[2016-05-12 07:01] LABS: CALCIUM 8.6 mg/dl (8.4-10.2)
[2016-05-12] MEDS: INSULIN ASPART [NOVOLOG] 3 ML PEN SC SCH ×2 (07:20→12:52)
--- NOTE | 2016-05-12 07:31 | PDOCDIS ---
Discharge Instructions DIAGNOSIS Discharge Diagnosis: s/p left anterior ROMÁN CONDITION Patient Condition: Good HOME CARE INSTRUCTIONS: Diet Instructions: RegularSpecial Diet: ADA DIET ACTIVITY: Activity Restrictions: No Restrictions Slowly Increase Activity Rest between Activity Avoid heavy lifting Do not operate Machinery Do not operate Power Tool Avoid Heavy Housework Keep Limb Elevated FOLLOW UP/APPOINTMENTS Appointments follow up in the office with Dr. Park on 05/19/16 OTHER ORDERS: Other Orders: S/P Anterior ROMÁN Physical Therapy: Three times per week at home x 2 weeks Daily in Rehab/SNF WB STATUS: WBAT Strengthening exercises for both upper and un-operated lower extremities. 1. Gait training with front wheeled walker 2. Wide base gait, no pivot turns. 3. Abductor strengthening. 4. Quadriceps and hamstring strengthening. 5. May switch to cane in contra lateral hand 6 weeks after surgery. 6. Physical Therapy can open case if nursing is not available. 7. Ice Packs while at rest to surgical wound for 20 minutes, 3 times/day. 8. Patient requires mobile SCDs to reduce risk of developing DVT following ROMÁN. Patient will use the mobile SCDs for 30 days postoperatively. Hip Precautions: No posterior hip precautions. Bathing assistance by home health aide twice weekly if Medicare patient. Occupational Therapy: Evaluation for assistive devices and ADL training. Wound Care: Keep incision dry & covered with Tegaderm until first visit with Dr. Park Anticoagulation Orders: Enteric Coated Aspirin 325 mg po bid x 6 weeks from date of surgery Follow-up:Call for an appointment with Dr. Park in 1 week after discharged from hospital at DME Orders: CHERYL, 3-in-1 [employer], Mobile SCDs NENA MEDRANO PA-C May 12, 2016 07:31
[2016-05-12] MEDS ORDERED: PANT40TA4 PO (07:33)
[2016-05-12] MEDS ORDERED: HYDR-906 PO (07:33)
[2016-05-12] MEDS ORDERED: ASPI325T32 PO (07:33)
[2016-05-12] MEDS ORDERED: TRAM50TA2 PO (07:33)
[2016-05-12 08:00] VITALS: BP 119/59; PULSE 76; RESP 16
[2016-05-12 08:30] VITALS: BP 124/76; RESP 19
[2016-05-12] MEDS: CELECOXIB 200 MG CAP PO SCH (08:37)
[2016-05-12] MEDS: ASPIRIN (EC) 325 MG TAB PO SCH (08:37)
[2016-05-12] MEDS: metFORMIN 500 MG TAB PO SCH (08:37)
[2016-05-12] MEDS: CITALOPRAM 20 MG TAB PO SCH (08:37)
[2016-05-12] MEDS: DOCUSATE SODIUM 100 MG CAP PO SCH (08:38)
[2016-05-12] MEDS: PREGABALIN 25 MG CAP PO SCH (08:38)
[2016-05-12] MEDS: LISINOPRIL 20 MG TAB PO SCH (08:39)
--- NOTE | 2016-05-12 08:44 | CONS ---
Date/Time of Note Date/Time of Note DATE: 05/12/16 TIME: 08:43 Assessment/Plan Assessment/Plan Additional Assessment/Plan 1. Stable post op left hip 2. BP well controlled 3. Anemia, asx, better today 4. Can dc if ok witih ortho and pt Consultation Date/Type/Reason Admit Date/Time May 09, 2016 at 05:17 Detailed Summary Respiratory: cough (is mild and not productive), No pleuritic pain Cardiovascular: No chest pain Gastrointestinal: no complaints Genitourinary: no complaints Musculoskeletal: bone/joint pain (mild left hip pain) Exam/Review of Systems Vital Signs Vitals Vital Signs Date Time Temp Pulse Resp B/P Pulse Ox O2 Delivery O2 Flow Rate FiO2 05/11/16 19:00 99.2 83 18 124/64 94 05/10/16 07:30 Nasal Cannula 2.0 Intake and Output 05/11/16 05/11/16 05/12/16 15:00 23:00 07:00 Intake Total 700 ml 800 ml Balance 700 ml 800 ml Exam Neck: No jvd Respiratory: clear to auscultation Cardiovascular: regular rate and rhythm Gastrointestinal: soft Extremities: No edema (and no calf tend) Results Result Diagram: 05/12/16 0410 05/12/16 0410 Results 24 hrs Laboratory Tests Test 05/11/16 11:26 05/11/16 16:56 05/12/16 04:10 05/12/16 07:52 Bedside Glucose 182 139 117 Anion Gap 12 Blood Urea Nitrogen 14 Calcium Level 8.6 Carbon Dioxide Level 30 Chloride Level 102 Creatinine 0.53 Ferritin 54.7 Glucose Level 120 Hematocrit 27.2 L Hemoglobin 9.2 L Iron Level 12 L Percent Iron Saturation 4 L Potassium Level 4.3 Sodium Level 140 Total Iron Binding Capacity 295 Medications Medications Current Medications Miscellaneous Information 1 ea NOTE XX ; Start 05/09/16 at 05:00; Stop 05/13/16 at 04:59 Atorvastatin Calcium (Lipitor) 40 mg QHS PO Last administered on 05/11/16 21: 37; Admin Dose 40 MG; Start 05/09/16 at 21:00 Citalopram Hydrobromide 20 mg 20 mg DAILY PO Last administered on 05/12/16 08: 37; Admin Dose 20 MG; Start 05/10/16 at 09:00 Lactated Ringer's (Lr) 1,000 ml @ 125 mls/hr Q8H IV Last administered on 05:44; Admin Dose 125 MLS/HR; Start 05/09/16 at 15:00 Celecoxib (Celebrex) 200 mg DAILY PO Last administered on 05/12/16 08:37; Admin Dose 200 MG; Start 05/10/16 at 09:00 Tramadol HCl (Ultram) 50 mg Q6 PO Last administered on 05/12/16 05:31; Admin Dose 50 MG; Start 05/09/16 at 12:00; Stop 05/12/16 at 11:59 Oxycodone HCl (Roxicodone) 5 mg Q4H PRN PO PAIN LEVEL 1-3 Last administered on 05/11/16 02:02; Admin Dose 5 MG; Start 05/09/16 at 15:00 Oxycodone HCl (Roxicodone) 10 mg Q4H PRN PO PAIN LEVEL 4-7 Last administered on 05/12/16 08:38; Admin Dose 10 MG; Start 05/09/16 at 15:00 Hydromorphone HCl (Dilaudid) 1 mg Q3H PRN IV PAIN LEVEL 8-10; Start 05/09/16 at 15:00 Ondansetron HCl (Zofran Inj) 4 mg Q6H PRN IV NAUSEA AND/OR VOMITING; Start at 15:00 Bisacodyl (Dulcolax Supp) 10 mg Q12H PRN [place] CONSTIPATION; Start 05/09/16 at 15: 00 Magnesium Hydroxide (Milk Of Mag) 30 ml BID PRN PO CONSTIPATION; Start at 15:00 Sodium Biphosphate/ Sodium Phosphate (Fleet Enema) 133 ml DAILY PRN DE CONSTIPATION; Start 05/09/16 at 10:00 Docusate Sodium (Colace) 100 mg BID PO Last administered on 05/12/16 08:38; Admin Dose 100 MG; Start 05/09/16 at 21:00 Diphenhydramine HCl (Benadryl) 25 mg Q6H PRN PO PRURITUS; Start 05/09/16 at 15: 00 Aspirin (Ecotrin) 325 mg BID PO Last administered on 05/12/16 08:37; Admin Dose 325 MG; Start 05/10/16 at 09:00 Pregabalin (Lyrica) 50 mg BID PO Last administered on 05/12/16 08:38; Admin Dose 50 MG; Start 05/09/16 at 21:00 Pantoprazole (Protonix Tab) 40 mg BID@06,18 PO Last administered on 05/12/16 05:31; Admin Dose 40 MG; Start 05/09/16 at 18:00 Lisinopril (Zestril) 20 mg DAILY PO ; Start 05/09/16 at 14:00 Levothyroxine Sodium (Synthroid) 75 mcg DAILY@06 PO Last administered on 05:31; Admin Dose 75 MCG; Start 05/10/16 at 06:00 Miscellaneous Information 1 ea NOTE XX ; Start 05/09/16 at 14:30 Glucose (Glutose) 15 gm Q15M PRN PO DECREASED GLUCOSE; Start 05/09/16 at 14:30 Glucose (Glutose) 22.5 gm Q15M PRN PO DECREASED GLUCOSE; Start 05/09/16 at 14: 30 Dextrose (D50w Syringe) 25 ml Q15M PRN IV DECREASED GLUCOSE; Start 05/09/16 at 14:30 Dextrose (D50w Syringe) 50 ml Q15M PRN IV DECREASED GLUCOSE; Start 05/09/16 at 14:30 Glucagon (Glucagen) 1 mg Q15M PRN IM DECREASED GLUCOSE; Start 05/09/16 at 14:30 Glucose (Glutose) 15 gm Q15M PRN BUCCAL DECREASED GLUCOSE; Start 05/09/16 at 14 :30 VIRY CASTANEDA MD May 12, 2016 08:44
[2016-05-12] MEDS ORDERED: FERROUS FUMARATE (SR) TAB PO SCH (09:00)
--- NOTE | 2016-05-12 09:19 | PN ---
Date/Time of Note Date/Time of Note DATE: 05/12/16 TIME: 09:18 Assessment/Plan Lines/Catheters IV Catheter Type (from Nrsg): Saline Lock Herr in Place (from Nrsg): No Assessment/Plan Assessment/Plan Stable POD #3, s/p left anterior ROMÁN -pain meds -ASA/SCDs -OOB with PT -dressing changed -d/c to [facility] today Subjective 24 Hr Interval Summary Doing well. No acute overnight events. VSS, afebrile. Pain minimal. Would like to go to [facility] today. Exam/Review of Systems Vital Signs Vitals Vital Signs Date Time Temp Pulse Resp B/P Pulse Ox O2 Delivery O2 Flow Rate FiO2 05/11/16 19:00 99.2 83 18 124/64 94 05/10/16 07:30 Nasal Cannula 2.0 Intake and Output 05/11/16 05/11/16 05/12/16 15:00 23:00 07:00 Intake Total 700 ml 800 ml Balance 700 ml 800 ml Exam Free Text/Dictation Dressing dry Incision clean, dry, and intact without redness or drainage 5/5 Quadriceps, Tibialis Anterior, EHL, Gastroc, Soleus, Peroneals Normal sensation Palpable DT/PT, CR <2 sec No distal edema Results Result Diagram: 05/12/16 0410 05/12/16 0410 NENA MEDRANO PA-C May 12, 2016 09:19
[2016-05-12 15:30] VITALS: BP 123/62; PULSE 88; RESP 15
--- NOTE | 2016-05-13 10:48 | DS ---
DATE OF ADMISSION: 05/09/2016 DATE OF DISCHARGE: 05/12/2016 CONDITION ON DISCHARGE: Stable. ADMITTING DIAGNOSIS: Left hip osteoarthritis. DISCHARGE DIAGNOSIS: Status post left anterior total hip arthroplasty. PROCEDURE PERFORMED: Left anterior total hip arthroplasty. HOSPITAL COURSE: This is a 80-year-old female who was seen in the clinic initially complaining of l eft hip and groin pain. She was evaluated and it was thought she would benefit from a left anterior total hip arthroplasty. On 05/09/2016, the patient was admitted and taken to the operating room wh ere she underwent a left anterior total hip arthroplasty. There were no intraoperative complication s. Patient tolerated the procedure well. She was taken to the recovery room in stable condition. Pain was well controlled with oral pain medication. She was started on aspirin and SCDs for DVT pro phylaxis. She remained hemodynamically stable and neurovascularly intact throughout her hospital co urse. On postoperative day zero she began physical therapy and continued to make progress. On post operative day #3, it was deemed she was stable for discharge or transfer. Prior to transfer, the pa tient was inspected and noted to be clean, dry and intact. Dressing changes were done prior to the patient being transferred to [facility]. LABORATORY DATA: Upon analysis, hemoglobin 9.2, hematocrit 27.2. Chemistry panel was within normal limits. DISCHARGE MEDICATIONS: 1. [place] 5/325 mg. 2. Tramadol 50 mg. 3. Aspirin 325 daily. 4. Protonix 40 mg. Additionally, the patient is to resume all of her normal home medications. DISCHARGE INSTRUCTIONS: The patient will be transferred to [facility] in stable condition. She is to resume a normal diet. Activities include weightbearing as tolerated on the left lower extremity . She is to begin physical therapy at the rehabilitation facility. She will be transferred with th e medications noted above. Additionally, she is to resume a normal diet and all of her normal home medications. The patient is to call the office or return to the emergency room for any concerns inc luding increased redness, swelling, drainage or fever or any concerns regarding the operation or sit e of incision. FOLLOWUP: The patient will need to follow up in the office with Dr. Park on 05/19/2016. Dictated By: NENA ALEMAN for HEIKE OHARA/KATLIN Conf#: [id number] [facility]#: [id number]
== END 2016-05-12 15:40 | DRG 470 ==
LOC: REC 05:17 → MS1 11:09
PROVIDERS: ADMIT Orthopaedic Surgery; ATTEND Orthopaedic Surgery
PROC: 0SRB04Z Replacement of Left Hip Joint with Ceramic on Polyethylene Synthetic Substitute, Open Approach (ICD-10-PCS; principal; 2016-05-09 07:00)
DX: M16.12 Unilateral primary osteoarthritis, left hip (principal); E11.9 Type 2 diabetes mellitus without complications; D64.9 Anemia, unspecified; I10 Essential (primary) hypertension; F32.9 Major depressive disorder, single episode, unspecified; E03.9 Hypothyroidism, unspecified
CPT/HCPCS: 72170; 73500; 73530; 80048; 81003; 82728; 82962; 83540; 85014; 85018; 86850; 86900; 86901; 86920; 87081; 87086; 88304; 88311; 90686; 97110; 97116; 97162; 97167; 97530; Z7610; C1776; J0131; J0690; J1100; J1815; J1885; J2001; J2250; J2405; J2710; J3010; J3370; J7120

== ENCOUNTER → 2016-05-19 | Outpatient (CLI) | payer MEDICARE, OTHER ==
[~2016-05-19] MED LIST changes: +ASPI325T32 PO; +ATOR40TA68 PO; -BUPIVACAINE LIPOSOME/PF 266 MG/20 ML VIAL INFIL SCH; -CEFAZOLIN 2GM/50 ML (PMX) 50 ML X1 BEFORE INCISION IVPB ONE; -CELECOXIB 400 MG PO X1 DOSE PO ONE; +CITA20TA6 PO; -EXPAREL NOTE (BUPIVICAINE LIPOSOMAL) XX SCH; +HYDR-906 PO; -LACTATED RINGER'S 1,000 ML IV ONE; +LEVO75TA5 PO; +LISI1TAB6 PO; +METF500T PO; +PANT40TA4 PO; -PREGABALIN 300 MG PO X1 PO ONE; -SOD CHLORIDE 0.9% IV ONE; +TRAM50TA2 PO; -TRANEXAMIC ACID 790 MG in SOD CHLORIDE 0.9% 100 ML IVPB SCH; -TRANEXAMIC ACID IV ONE; +VIT D; -oxyCODONE (CR) 10 MG TAB [oxyCONTIN] X1 DOSE PO ONE; -traMADOL 50 MG TAB X 1 DOSE PO ONE
== END | disposition home or self-care (01) ==
LOC: HKI 14:12
PROVIDERS: ATTEND Orthopaedic Surgery
DX: Z47.1 Aftercare following joint replacement surgery (principal); M16.12 Unilateral primary osteoarthritis, left hip; Z96.642 Presence of left artificial hip joint
CPT/HCPCS: G0463

== ENCOUNTER → 2016-06-19 | Outpatient (CLI) | payer MEDICARE, OTHER ==
--- NOTE | 2016-06-19 14:29 | RADRPT ---
PROCEDURE: XR pelvis/left hip. CLINICAL INDICATION: Hip pain TECHNIQUE: AP pelvis/lateral left hip view performed. COMPARISON: 05/09/2016 FINDINGS: There is a left total hip replacement. There is no evidence of loosening of the prosthesis. There is moderate to severe right hip osteoarthrosis. This is associated with joint space narrowing, subchondral sclerosis and osteophytosis. There is normal osseous mineralization. No fractures or osseous lesions are identified. The soft tissues are unremarkable. IMPRESSION: Left total hip replacement. Moderate to severe right hip osteoarthrosis. RPTAT: HGDB .Nilesh Dominguez MD, Date Time Electronically viewed and signed by .Nilesh Dominguez MD, on 06/19/2016 14:29 .B/
== END | disposition home or self-care (01) ==
LOC: HKI 14:03
PROVIDERS: ATTEND Orthopaedic Surgery
DX: Z47.1 Aftercare following joint replacement surgery (principal); M16.12 Unilateral primary osteoarthritis, left hip; Z96.642 Presence of left artificial hip joint
CPT/HCPCS: 73502

== ENCOUNTER → 2016-08-07 | Outpatient (CLI) | payer MEDICARE, OTHER ==
--- NOTE | 2016-08-07 12:42 | RADRPT ---
PROCEDURE: XR pelvis and bilateral hips. CLINICAL INDICATION: PAIN TECHNIQUE: AP pelvis and frog lateral views of the bilateral hips were performed. COMPARISON: Plain radiographs of the pelvis and left hip from 06/19/2016 FINDINGS: There is decreased osseous mineralization. No acute fracture or osseous lesion is identified. A total left hip prosthesis is again noted in near anatomic alignment without evidence of hardware l oosening. There are stable moderate to severe degenerative changes of the right hip joint including joint spac e narrowing and subchondral sclerosis. The soft tissues are unremarkable. IMPRESSION: Left hip prosthesis in near anatomic alignment without evidence of hardware loosening. Decreased osseous mineralization. RPTAT: EE Physician Yayo Date Time Electronically viewed and signed by Physician Yayo on 08/07/2016 12:41 RA/
== END | disposition home or self-care (01) ==
LOC: HKI 09:14
PROVIDERS: ATTEND Orthopaedic Surgery
DX: M16.11 Unilateral primary osteoarthritis, right hip (principal); M25.551 Pain in right hip; Z96.642 Presence of left artificial hip joint
CPT/HCPCS: 73502